=== PATIENT | female | born 1980 | race Hispanic/Latino ===

== ENCOUNTER 2017-08-01 02:00 | Emergency (ER) | payer MEDICARE, OTHER ==
[~2017-08-01] VITALS: Ht 177.8 cm; Wt 83.5 kg
[~2017-08-01 02:00] MED LIST: AMITRIPTYLINE H25 MG PO; BUSPAR10 MG PO; FANAPT1 EACH; HYDROCODONE AP PO; HYDROXYZINE PAMOATE PO; INDERAL PO; MOTRIN800 M1 PO; PROZAC40 MG PO; TOPAMAX100 MG PO; TRAZODONE HCL150 MG PO; Z.0.AMBIEN10 MG PO; Z.0.CIPRO500 MG PO; ZANTAC150 M1 PO; [UNRECOGNIZED DRUG - OTHER] PO
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
[2017-08-01 03:55] VITALS: BP 120/66
== END 2017-08-01 04:01 | disposition home or self-care (01) ==
LOC: ER 02:00
DX: S93.491A Sprain of other ligament of right ankle, initial encounter (principal); W01.0XXA Fall on same level from slipping, tripping and stumbling without subsequent striking against object, initial encounter; Y93.01 Activity, walking, marching and hiking; Y92.008 Other place in unspecified non-institutional (private) residence as the place of occurrence of the external cause; S93.411A Sprain of calcaneofibular ligament of right ankle, initial encounter; S80.11XA Contusion of right lower leg, initial encounter
CPT/HCPCS: 99282

== ENCOUNTER 2018-02-01 09:01 | Emergency (ER) | payer OTHER ==
[~2018-02-01] VITALS: Ht 177.8 cm; Wt 83.5 kg
[2018-02-01] MEDS ORDERED: ACETAMINOPHEN 325 MG TAB PO ONE (09:45)
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
[2018-02-01] MEDS ORDERED: ROBAXIN-750750 MG PO (11:00)
[2018-02-01] MEDS ORDERED: NAPROXEN250 MG PO (11:13)
[2018-02-01] MEDS ORDERED: KETOROLAC TROMETHAMINE 60 MG/2 ML VIAL IM ONE (11:15)
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
== END 2018-02-01 11:42 | disposition home or self-care (01) ==
LOC: ER 09:01
DX: S00.83XA Contusion of other part of head, initial encounter (principal); M54.2 Cervicalgia; M54.6 Pain in thoracic spine; M54.5 Low back pain; S13.4XXA Sprain of ligaments of cervical spine, initial encounter; S23.3XXA Sprain of ligaments of thoracic spine, initial encounter; S33.5XXA Sprain of ligaments of lumbar spine, initial encounter; V43.52XA Car driver injured in collision with other type car in traffic accident, initial encounter; Y92.488 Other paved roadways as the place of occurrence of the external cause
CPT/HCPCS: 70450; 71045; 72072; 72110; 72125; 99284; J1885